=== PATIENT | female | born 1985 | race Caucasian/White ===

== ENCOUNTER → 2018-12-16 | Outpatient (CLI) | payer MEDICARE ==
[~2018-12-16] MED LIST: ACYC800T PO; ALPR.5T PO; BACL10TA PO; CYCL10TA9 PO; DULO60CA6 PO; FERR325C PO; HYDR-2890 PO; MORP15TA PO; MORP30TA28; NAPR-243 PO; NITR-65 PO; OXCA150T3 PO; OXYC-281 PO; PRAZ1CAP PO; SULF1TAB38 PO; VIT1TABL54 PO; VIT1TABL57
--- NOTE | 2018-12-16 17:49 | Diagnostic Imaging Report ---
PROCEDURE: CT cervical spine without contrast. TECHNIQUE: Multiple contiguous axial images were obtained through the cervical spine without the use of intravenous contrast. Sagittal and coronal reformations were then performed. Auto Exposure Controls were utilized during the CT exam to meet ALARA standards for radiation dose reduction. INDICATION: Left arm paresthesia, history of Chiari malformation. COMPARISON: None. FINDINGS: Clean Room Operator views and reformats demonstrate reversal of normal anatomic alignment of the cervical spine. Findings could relate to positioning, as well as muscle spasm. There is no evidence of acute fracture or dislocation. Prevertebral soft tissues are unremarkable. The vertebral bodies are of normal height and contour. The disc spaces are well maintained. No bony fragments are seen in the central canal. No areas of central canal or foraminal stenosis are seen. Limited views of the intracranial structures and the lung apices demonstrate no focal lesions. IMPRESSION: No evidence of fracture or dislocation of the cervical spine. Dictated by: Dictated on workstation # [id number]
== END ==
LOC: RAD 16:37
PROVIDERS: ATTEND Family Medicine
DX: M53.82 Other specified dorsopathies, cervical region (principal); R20.2 Paresthesia of skin; Z87.798 Personal history of other (corrected) congenital malformations
CPT/HCPCS: 72125